=== PATIENT | female | born 1955 | race Caucasian/White ===

== ENCOUNTER 2025-07-11 10:54 | Outpatient (CLI) | payer MEDICARE, SELFPAY ==
[2025-07-11 12:14] LABS: Hematocrit 32.8 % (37.0-47.0); Hemoglobin 10.2 g/dL (12.0-15.0); Immature Granulocyte Percent A 0.5 % (0-0.5); Lymphocytes Absolute Auto 1.76 K/mm3 (0.9-3.2); Mean Corpuscular HGB Conc 31.1 g/dl (32-36); Mean Corpuscular Hemoglobin 28.4 pg (26-34); Mean Corpuscular Volume 91.4 fl (80-100); Nucleated Red Blood Cells Absolute Auto 0.000 K/mm3 (0.0-0.012); Nucleated Red Blood Cells Perc 0.0 % (0.0-0.2); Platelet Count Result 243 k/mm3 (150-375); Red Blood Count 3.59 M/mm3 (4.2-5.4); White Blood Count 7.4 K/mm3 (4.5-10.0)
[2025-07-11 12:40] LABS: Alanine Aminotransferase 23 U/L (6-35); Albumin Level 3.6 g/dL (3.5-5.1); Alkaline Phosphatase 36 U/L (38-126); Anion Gap 5 mmol/L (4-12); Aspartate Amino Transferase 55 U/L (14-36); Bilirubin,Total 0.4 mg/dL (0.2-1.3); Blood Urea Nitrogen 20 mg/dL (7-17); Calcium 8.6 mg/dL (8.4-10.2); Carbon Dioxide 25 mmol/L (22-30); Chloride 105 mmol/L (98-107); Cholesterol 101 mg/dL (0-200); Estimated Glomerular Filt Rate 38; Glucose 82 mg/dL (65-110); HDL Direct 33 mg/dL; Potassium 4.3 mmol/L (3.4-5.0); Sodium 135 mmol/L (137-145); Total Protein 6.2 g/dL (6.3-8.2); Triglycerides 132 mg/dL (<150)
--- OUTSIDE RECORDS SUMMARY | 2025-07-11 12:43 | XMS_ITS | Data Portability ---
Author Organization [place] [facility], Main Office Address [address] [place] [address] Assessment No assessment recorded. Plan of Treatment Reminders Order Date Submit Date Provider Last Modified By Organization Details Last Modified Time Details Appointments Follow Up 15 2024 01:00P JUNE Mora Not available Not available Not available Lab CBC w/ auto diff 2024 025 [email or web address] [facility], [address], [place], [address], 04/29/2025 08:15:33 TSH + free T4, serum 2024 025 [email or web address], [address], [place], [address], 04/29/2025 08:15:33 lipid panel, serum 2024 025 [email or web address], [address], [place], [address], 04/29/2025 08:15:33 CMP, serum or plasma 2024 025 [email or web address], [address], [place], [address], 04/29/2025 08:15:33 lipid panel, serum [address] [facility] (Lab), [address] [facility], [place], [address], 10/22/2024 13:45:30 CBC w/ auto diff [address] [facility] (Lab), [address] [place], [address], 10/22/2024 13:45:30 CMP, serum or plasma [address] [facility] (Lab), [address] [place], [address], 10/22/2024 13:41:37 CK (creatine kinase), total, serum [address] (Lab), [address] [place], [address], 10/27/2024 11:45:14 vitamin B12 + folate, serum or blood [address] (Lab), [address] [place], [address], 10/27/2024 11:45:13 unlisted lab - shield blood-bas ed colorecta l cancer screening 2023 024 [place] [facility], [address] , [place], [address], 06/22/2024 12:33:50 Referral None recorded. Procedures None recorded. Surgeries None recorded. Imaging LDCT, chest, for lung cancer screening - Please call patient to schedule. 2024 025 [email or web address] [facility], [address] [place] [address] , [place] [address], [place], [address], 05/26/2025 17:10:23 MAMMO, screening , digital, bilateral 2023 [email or web address] [place] [address], [address] [place], [address], 07/27/2024 09:44:29 Medication Orders tramadol 50 mg tablet 2024 025 [facility]28, [address] [place], [place], [id number], 04/22/2025 17:37:15 tramadol 50 mg tablet [address] [facility] #25527, [address] [place], [place], [id number], 01/18/2025 14:20:28 Bystolic 5 mg tablet [address] [facility]95312, [address] [place], [place], [id number], 01/18/2025 14:19:11 metoprolo l succinate ER 25 mg tablet,ex tended release 24 hr 2024 025 [email or web address] 00 [facility] [place] [place] #02082, [address] [place], [place], [id number], 01/18/2025 14:17:49 rosuvasta tin 10 mg tablet [address] [facility] #23945, [address] [place], [place], [id number], 10/20/2024 14:36:56 Depo-Medr ol 80 mg/mL suspensio n for injection 2023 024 [email or web address] Not available 04/22/2025 12:12:17 ketorolac 60 mg/2 mL intramusc ular solution 2023 024 [email or web address] Not available 04/22/2025 12:12:24 tramadol 50 mg tablet [address] [facility] [place] [place] #[address]66, [address] [place], [place], [id number], 06/22/2024 12:12:19 Patient TargetsNo targets recorded. Patient Instructions Encounter Date Encounter Id Patient Instructions Last Modified By Organization Details Last Modified Time 05/04/2024 [id number] Learning About Benefits of Quitting Smoking [email or web address] Not available 05/13/2024 16:08:54 advised to quit smoking [email or web address] Not available 05/13/2024 16:08:53 stroke education [email or web address] Not availa ble 05/13/2024 16:08:54 Learning About B E FAST: Stroke Warning Signs [email or web address] Not available 05/13/2024 16:08:54 hypertension education [email or web address] Not available 05/13/2024 16:08:54 cholesterol education [email or web address] Not available 05/13/2024 16:08:54 statins information [email or web address] Not olvin ilable 05/13/2024 16:08:53 06/22/2024 [id number] dementia rating scale-2* [email or web address] Not available 06/22/2024 11:59:23 depression screening* [email or web address] Not available 06/22/2024 11:59:22 alcohol misuse* [email or web address] Not availab le 06/22/2024 11:59:22 multi-dimensiona l health assessment questionnaire* Not available 06/22/2024 11:59:23 Personalized Hea lt Plan and Screening Recommendations Advance Directives - Do you have one? No I have no recommendations Advance Directives - Do we have your advance directive on file in your health record? I have no recommendations Primary Prevention/Interven tion (prevents or decreases the chance of common diseases from occurring) Smoking Risk: Smoker I have no recommendations Alcohol Misuse Screening: Negative I have no recommendations Weight: Overweight try to lose 10% of your body weight Physical activity: Need more exercise/physical activity minimum of 20-30 minutes activity that causes mild breathlessness/day Nutrition: Average Eat Heart Healthy Diet Fall Risk (screened today): Low I have no recommendations Vaccines Pneumococcal: Recommended today, but you have declined Influenza: Recommended today, but you have declined Chronic Disease Risks Stroke: Intermediate Risk Active diagnosis, Continue current treatment plan Heart Attack: Intermediate Risk Active diagnosis, Continue current treatment plan Clogging of the Arteries: Intermediate Risk Active diagnosis, Continue current treatment plan Diabetes: Low Risk I have no recommendations Secondary Prevention/Interven tion (detects treatable diseases before they may cause symptoms, disability, or ) Breast Cancer Screening with mammogram: Recommended today Cervical/Uterine/Ov hilton Cancer Screening: No screening necessary Osteoporosis Screening: Recommended today Date Screening Last Performed: Colon Cancer Screening: Shield Test Recommended Date Screening Last Performed: Eye Disease Screening: Recommended today Dementia Risk: Low I have no recommendations Depression Screening: Negative I have no recommendations abol Not available 06/21/2024 15:49:50 Reason for Referral None Reported. Results Created Date Observation Date Name Description Value Unit Range Abnormal Flag Note LastModifiedBy Organization Detail LastModifiedTime 06/22/20 24 06/22/2024 SHIEL D CRC crc The Shiel d Test is cover ed by Medic are. Non-M krish negrete nts may have an out of pocke t expen se of $1,49 5. Not Available [employer] [address], [place], [address], 06/22/2024 12:17:49 06/22/20 24 06/22/2024 SHIEL D CRC crc The Shiel d Test is cover ed by Medic are. Non-M krish negrete nts may have an out of pocke t expen se of $1,49 5. Not Available [employer] [address], [place], [address], 06/22/2024 12:33:50 08/23/20 24 08/23/2024 SHIEL D CRC crc Cancel ed - See attach ed report to view cancel ation reason Not Available [employer] [address], [place], [address], 08/23/2024 12:00:45 07/30/20 24 07/30/2024 MAMMgenet Lindsay digit al, bilat eral No observ ation record ed. [email or web address] [facility] [address] [place], [address], 2024 10:59:44 07/30/20 24 07/30/2024 MAMMO , scree el, digit al, bilat eral No observ ation record ed. [email or web address] [facility] [address] [place], [address], 2024 10:59:44 Result Notes None recorded. Problems Name Problem SNOMED Code Status Onset Date Resolution Date Notes Provider Name and Address Organization Details Recorded Time Vertigo 516837882 Active 2017 Not Available [facility] 4 05:26:04 History of cerebrova scular accident without residual deficits 123982622 Active 2017 Not Available [facility] 4 05:26:04 Smoker 62304806 Active 2017 Not Available [facility] 4 05:26:04 Congestiv e heart failure 14226327 Completed 201711/18/2017 Not Available [facility] 3 19:26:55 Cardiac pacemaker in situ 801582150 Active 2017 Jenny Choi CCM null, [place] [facility] 4 15:51:53 Colonosco py declined 95522279213 9100 Active 2021 Not Available [facility] 4 05:26:04 Essential hypertens ion 84483791 Active 2022 Jenny Choi CCM null, [place] [facility] 4 15:51:54 Hyperlipi demia 18793606 Active 2022 Jenny Choi CCM null, [place] [facility] 4 20:57:21 Periodic limb movement disorder 904112632 Active 2023 Not Available [facility] 4 05:26:04 Obstructi ve sleep apnea syndrome 19542844 Active 2023 Jenny Choi CCM null, [place] [facility] 4 20:57:21 Iron deficienc y 46651624 Active 2023 Jenny Choi CCM null, [place] [facility] 4 15:52:45 Nodule of lung 799395475 Active 2023 Jenny Choi CCM null, [facility] 4 15:52:32 Anxiety 40420370 Active 2023 Jenny Choi CCM null, [facility] 4 21:03:10 Screening mammograp hy Active 2023 KATIE Rodas [address], [address], [place], [address] , [facility] 4 11:58:14 Screening for malignant neoplasm of colon Active 2023 KATIE Rodas [address], [address], [place], [address] , [facility] [employer] [facility] 4 12:02:33 Thoracic back pain 666364500 Active 2023 KATIE Rodas [address], [address], [place], [address] , [facility] [employer] [facility] 4 12:06:06 Serum vitamin B12 below reference range 712379164 Active 2024 KATIE Rodas [address], [address], [place], [address] , [facility] [employer] [facility] 5 14:39:19 Anemia 108240171 Active 2024 KATIE Rodas [address], [address], [place], [address] , [facility] [employer] [facility] 5 14:19:21 Tobacco dependenc e caused by cigarette s 99085289520 373456 Active 2024 JUNE Gatica [address], [address], [place], [address] , [facility] 5 12:24:54 Notes:Medical History: CVA V ertigo Nicotine use RUL pulmonary nodules Early REM onset Mod OSAHS, AHI = 20, 09/24/23, on autoCPAP c/o IVRC Hypertension Mixed hyperlipidemia Iron deficiency B12 deficiency Left adrenal adenoma PLMD Thoracic DDD Procedure History: Right upper arm trauma surgery 1960 Left leg surgery 1965 Pacemaker placement 2018 Occupational History: Retired warehouse shipping clerk Some problems listed in Document: #[id number] could not be added to this patient's chart. Please review this document and add these problems to the patient's chart manually as needed. Problem Notes None recorded. Procedures Surgical History Date Name Laterality Status Provider Name and Address Organization Details Recorded Time 4 Medicare Wellness CPT Code, subsequent completed Chapis Rojas RN [facility] [employer] [facility] 06/21/2024 15:35:36 4 Chronic care management services completed Sarah Fajardo [facility] [employer] [facility] 05/04/2024 18:33:28 4 Chronic care management services completed Jenny Choi [facility] [employer] [facility] 04/01/2024 20:09:58 4 Chronic care management services completed Jenny Choi [facility] [employer] [facility] 03/03/2024 21:02:38 1 tooth extraction, complete mouth completed Elaina Moody RN [facility] [employer] [facility] 04/22/2025 11:49:42 Imaging Results None recorded. Procedure Notes None recorded. Medical Equipment None Reported. Allergies Allergen ID Allergen Name Allergen Category Reaction Reaction Severity Criticality Documentation Date Start Date Code Code System Note Provider Name and Address Organization Details Recorded Time 02266 wasp venoms environme nt Not available Not available Not available 10/23/2023 23571 RxNorm Not Available [facility] 4 10:31:36 No known drug allergies Medications Name Sig Start Date Stop Date Status Note LastModified by Organization Details LastModified Time cyclobenzap rine 10 mg tablet TAKE 1 TABLET BY MOUTH EVERY 8 HOURS NEEDED 11/25 completed Not Available Not Available Not Available atorvastati n 20 mg tablet Take 1 tablet every day by oral route. active Not Available Not Available No t Available Vitamin C 500 mg tablet TAKE 1 TABLET BY MOUTH EVERY DAY active Not Available Not Available No t Available ibuprofen 800 mg tablet TAKE 1 TABLET BY MOUTH EVERY 6-8 HOURS NEEDED FOR PAIN 04/22 completed Not Available Not Available Not Available cephalexin 250 mg capsule TK 1 C PO Q 6 H 02/23 completed Not Available Not Available Not Available famotidine 40 mg tablet TK ONE-HALF T PO Q 12 HOURS FOR 5 DAYS 02/08 completed Not Available Not Available Not Available tramadol 50 mg tablet Take 1 tablet twice a day by oral route as needed for 30 days. 2024 active Not Available Not Available Not Avai lable Depo-Medrol 80 mg/mL suspension for injection Take 1 mL by injection route. 04/22 completed Not Available Not Available Not Available methocarbam ol 750 mg tablet Take 1 tablet 3 times a day by oral route for 10 days. active Not Available Not Available No t Available meclizine 25 mg tablet TK 1 T PO TID PRN 08/17 completed Not Available Not Available Not Available hydroxyzine HCl 25 mg tablet TK 1 T PO Q 6 H PRN 02/08 completed Not Available Not Available Not Available Baby Aspirin 81 mg chewable tablet Chew 1 tablet every day by oral route as directed. 2017 active Not Available Not Available Not Avai lable furosemide 20 mg tablet TK 1 T PO QD 11/18 completed Not Available Not Available Not Available metoprolol succinate ER 25 mg tablet,exte nded release 24 hr TAKE 1 TABLET BY MOUTH EVERY DAY 01/18 completed low bp . Not Available Not Available Not Available lisinopril 10 mg-hydrochl orothiazide 12.5 mg tablet TAKE 1 TABLET BY MOUTH DAILY active Not Available Not Available No t Available methylpredn isolone 4 mg tablets in a dose pack TK UTD 02/08 completed Not Available Not Available Not Available ketorolac 60 mg/2 mL intramuscul ar solution Inject 1 mL every day by intramusc ular route for 1 day. 04/22 completed Not Available Not Available Not Available Ventolin HFA 90 mcg/actuati on aerosol inhaler INL 2 PFS PO Q 4 TO 6 H PRF SOB 11/18 completed Not Available Not Available Not Available cyclobenzap rine 5 mg tablet TAKE 1 TABLET BY MOUTH THREE TIMES DAILY 04/22 completed Not Available Not Available Not Available rosuvastati n 10 mg tablet TAKE 1 TABLET BY MOUTH EVERY DAY active Not Available Not Available No t Available fenofibrate 160 mg tablet TAKE 1 TABLET BY MOUTH EVERY DAY IN THE MORNING active Not Available Not Available No t Available Vitamin B-12 2018 active hold Not Available Not Available Not Avai lable Fish Oil active Not Available Not Avai lable Not Available Centrum Silver 10/20 completed Not Available Not Available Not Available Symbicort 80 mcg-4.5 mcg/actuati on HFA aerosol inhaler Inhale 2 puffs twice a day by inhalatio n route for 1 day. active Not Available Not Available No t Available FeroSul 325 mg (65 mg iron) tablet TAKE 1 TABLET BY MOUTH EVERY DAY active Not Available Not Available No t Available nebivolol 5 mg tablet TAKE 1 TABLET BY MOUTH EVERY DAY IN THE MORNING active Not Available Not Available No t Available Dulera 100 mcg-5 mcg/actuati on HFA aerosol inhaler INHALE 2 PUFFS PO BID PER RT 02/23 completed Not Available Not Available Not Available Beckie Yanez [employer] active Not Available Not Available Not Available Vitals Date Recorded Body height Body mass index (BMI) Body weight Body temperature Oxygen saturation Oxygen saturation in Arterial blood by Pulse oximetry Heart rate Systolic And Diastolic Provider Name and Address Organization Details Last Updated DateTime 5 162.56 cm 26.7 kg/m2 45673.6 9 g 97.7 [degF] 98 % 98 % 63 /min 108/60 mm[Hg] Jim Resendez RN [facility] 5 14:29:50 Date Recorded Body height Body mass index (BMI) Body weight Body temperature Heart rate Oxygen saturation Oxygen saturation in Arterial blood by Pulse oximetry Systolic And Diastolic Provider Name and Address Organization Details Last Updated DateTime 5 162.56 cm 26.8 kg/m2 53528.4 1 g 97.4 [degF] 67 /min 97 % 97 % 108/60 mm[Hg] Melanie Coe Lidya [facility] 5 14:01:18 Date Recorded Body height Body mass index (BMI) Body weight Body temperature Oxygen saturation Oxygen saturation in Arterial blood by Pulse oximetry Heart rate Systolic And Diastolic Provider Name and Address Organization Details Last Updated DateTime 5 162.56 cm 26.9 kg/m2 56969.8 6 g 97.5 [degF] 94 % 94 % 58 /min 100/60 mm[Hg] MIRANDA Reina - [facility] [place] [employer] [facility] 5 11:43:05 Date Recorded Body height Provider Name an d Address Organization Details Last Updated DateTime 05/04/2024 162.56 cm Sarah Fajardo [facility] [employer] [facility] 05/04/2024 18:31:17 Date Recorded Body height Body mass index (BMI) Body weight Body temperature Heart rate Oxygen saturation Oxygen saturation in Arterial blood by Pulse oximetry Systolic And Diastolic Provider Name and Address Organization Details Last Updated DateTime 4 162.56 cm 26.6 kg/m2 01677.8 2 g 98.2 [degF] 70 /min 97 % 97 % 120/50 mm[Hg] Kayla Triana RN [facility] [employer] [facility] 4 11:52:56 Social History Question Answer Notes LastModified by Organizat ion Details LastModified Time Tobacco Smoking Status Current Every Day Smoker Not Available [facility] 12/04/2022 19:26:38 Are You Blind Or Do You Have Difficulty Seeing? No MIGRATION.11915 64620 Information not available 12/04/2022 What Is Your Level Of Caffeine Consumption? Occasional 1/2 Cup Of Coffee/da y One Mini Bottle Pepsi/day [email or web address] Information not available 04/22/2025 In The 14 Days Before Symptom Onset, Have You Had Close Contact With A Laboratory-confir med COVID-19 While That Case Was Ill? No MIGRATION.37205 70081 Information not available 12/04/2022 In The 14 Days Before Symptom Onset, Have You Had Close Contact With A Person Who Is Under Investigation For COVID-19 While That Person Was Ill? No MIGRATION.56511 58203 Information not available 12/04/2022 Are You Deaf Or Do You Have Serious Difficulty Hearing? No MIGRATION.12154 86139 Information not available 12/04/2022 What Type Of Diet Are You Following? REGULAR MIGRATION.12386 53948 Information not available 12/04/2022 What Is The Highest Grade Or Level Of School You Have Completed Or The Highest Degree You Have Received? [id number] MIGRATION. 98207 Information not available 12/04/2022 Do You Have An Electrostatic Air Filter? No Information not available 10/23/2023 Have There Been Any Changes To Your Family Or Social Situation? No MIGRATION.40761 13828 Information not available 12/04/2022 Do You Have A Humidifier? No Information not available 10/23/2023 Do You Use Insect Repellent Routinely? No MIGRATION.63885 17051 Information not available 12/04/2022 Where Do You Live? Apartment MIGRATION.50862 67816 Information not available 12/04/2022 Do You Have Moisture Problems In Your Home? No Information not available 10/23/2023 What Was The Date Of Your Most Recent Tobacco Screening? 10/23/2023 Information not available 10/23/2023 What Is Your Current Pack Years? 20-29packyears [email or web address] Information not available 04/25/2025 Have You Ever Been Counseled For Unhealthy Alcohol Use? No MIGRATION.28180 81636 Information not available 12/04/2022 Do You Have Any Pets? No MIGRATION.50405 59861 Information not available 12/04/2022 What Is Your Relationship Status? Single MIGRATION.34791 17514 Information not available 12/04/2022 Do You Use Your Seat Belt Or Car Seat Routinely? Yes MIGRATION.35663 80844 Information not available 12/04/2022 Do You Have Smoke And Carbon Monoxide Detectors In Your Home? Yes MIGRATION.76063 41605 Information not available 12/04/2022 At What Age Did You Start Smoking Tobacco? 18 MIGRATION.16567 56279 Information not available 12/04/2022 Are You Passively Exposed To Smoke? Yes MIGRATION.15400 34693 Information not available 12/04/2022 Are There Any Smokers In Your House? Yes MIGRATION.29047 90474 Information not available 12/04/2022 How Much Tobacco Do You Smoke? 0.5 PPD Information not available 04/22/2025 Do You Participate In Social Media? No MIGRATION.94226 53673 Information not available 12/04/2022 Do You Use Sunscreen Routinely? No MIGRATION.20955 53422 Information not available 12/04/2022 Has Tobacco Cessation Counseling Been Provided? No MIGRATION.66814 26082 Information not available 12/04/2022 How Many Years Have You Smoked Tobacco? 51 [email or web address] Information not available 04/22/2025 Have You Recently Traveled Abroad? No MIGRATION.06844 87914 Information not available 12/04/2022 Do You Have Difficulty Walking Or Climbing Stairs? No MIGRATION.38217 34523 Information not available 12/04/2022 Are You Currently In School? No MIGRATION.40181 79026 Information not available 12/04/2022 Do You Have Any Dietary Restrictions? No MIGRATION.11424 25307 Information not available 12/04/2022 Sex: Female Functional Status Question Answer Note LastModified by Organizat ion Details LastModified Time Do you or have you ever used any other forms of tobacco or nicotine? No MIGRATION.7468718 026 Information not available 12/04/2022 What is your level of alcohol consumption? None [email or web address] Information not available 04/22/2025 Do you have transportation difficulties? No MIGRATION.9805587 026 Information not available 12/04/2022 Are you able to walk independently without assistance or assistive devices? [facility] MIGRATION.2622950 026 Information not available 12/04/2022 Do you have difficulty doing errands alone? No MIGRATION.2063307 026 Information not available 12/04/2022 Are you able to care for yourself independently? Yes MIGRATION.7161244 026 Information not available 12/04/2022 Do you have difficulty dressing, bathing, grooming, or toileting? No MIGRATION.7392550 026 Information not available 12/04/2022 What is your exercise level? Moderate MIGRATION.7597535 026 Information not available 12/04/2022 Mental Status Question Answer Note LastModified by Organizat ion Details LastModified Time Do you feel stressed (tense, restless, nervous, or anxious, or unable to sleep at night)? [id number] MIGRATION.16471081 26 Information not available 12/04/2022 Do you have difficulty concentrating, remembering or making decisions? No MIGRATION.47189961 26 Information not available 12/04/2022 Family History Relationship Description Onset Age of this Age Resolved Age Notes LastModified by Organization Details LastModified Time Father Malignant neoplasm of lung [email or web address] Not available 2023 10:10:43 Medical History Condition Response DIZZINESS Y Gynecological History Statement/Question Response Date of Last Mammogram 05/20/2022 Obstetrics History GPAL:G 0 P 0 0 0 0 Past Encounters Encounter ID Performer Location Encounter Start Date Encounter Closed Date Diagnosis/Indication Diagnosis SNOMED-CT Code Diagnosis ICD10 Code Diagnosis IMO Codes Diagnosis Note [id number] Romana Graham MD [facility] , [place] [address] 05/02/2021 00:00:00 05/02/2021 15:52:13 [id number] [facility] Jesus lang [facility] , [place] [address] 12/03/2021 00:00:00 12/03/2021 15:49:34 [id number] [facility] Jesus [facility] [place] [address] 05/22/2022 00:00:00 05/22/2022 14:15:42 [id number] Romana Graham MD [facility] [address] [place] [id number] 08/12/2022 00:00:00 08/12/2022 14:41:08 [id number] Romana Graham MD [facility] [place] [address] 11/26/2022 00:00:00 11/26/2022 20:29:06 [id number] Romana Graham MD [facility] [place] [address] 06/18/2023 11:18:28 06/18/2023 11:38:21 Essential hypertension 48718997 I10 Continue same meds. Screening for malignant neoplasm of colon 018638526 Z12.11 Pt is refusing colon cancer screening. [id number] Chun Squires MD [facility] Pulmonolo gy [address], [facility] [address] [place] [address] 10/23/2023 09:12:29 10/24/2023 08:08:43 Periodic limb movement disorder 897847441 G47.61 D50.8 E83.42 Obstructiv e sleep apnea syndrome 38943302 G47.33 Smoker 08117033 F17.218 F17.219 Z87.354 [id number] Chun Squires MD [facility] Pulmonolo gy [place] [address] [facility], [facility] [address] [place] [address] 11/03/2023 09:44:08 11/03/2023 12:34:31 Obstructive sleep apnea syndrome 83535474 G47.33 Smoker 10036880 F17.218 F17.219 Z87.891 Iron deficiency 54443430 E61.1 [id number] Zeke Bowden MD [facility] [place] [address] [place] [address] [place] [address] 03/03/2024 20:54:30 04/02/2024 15:01:58 Essential hypertension 21927149 I10 Obstructiv e sleep apnea syndrome 60515309 G47.33 Anxiety 21563146 F41.9 Cardiac pa cemaker in situ 021444981 Z95.0 Hyperlipidemia 77548527 E78.5 Iron deficiency 83937064 E61.1 Periodic l imb movement disorder 126010022 G47.61 D50.8 E83.42 [id number] Zeke Bowden MD [facility] [place] [address] [place] [address] [place] [address] 03/22/2024 11:37:39 03/22/2024 12:22:08 Essential hypertension 98452205 I10 Hyperlipidemia 33333733 E78.5 Iron deficiency 06853874 E61.1 Obstructiv e sleep apnea syndrome 26983304 G47.33 Cardiac pa cemaker in situ 337837783 Z95.0 Periodic l imb movement disorder 934521638 G47.61 D50.8 E83.42 Anxiety 49404533 F41.9 [id number] Zeke Bowden MD [facility] [place] [address] [place] [address] [place] [address] 04/01/2024 20:05:33 04/05/2024 13:39:58 Anxiety 26182060 F41.9 [id number] Zeke Bowden MD [facility] [place] [address] [facility] y [place] [address] 05/04/2024 18:29:34 05/14/2024 11:04:08 Smoker 01785008 F17.218 F17.219 Z87.891 Essential hypertension 96416022 I10 Hyperlipidemia 70330300 E78.5 History of cerebrovascular accident without residual deficits 932196954 Z86.73 [id number] Zeke Bowden MD [facility] [place] [address] [facility] [address] [place] [address] 06/22/2024 11:36:08 06/22/2024 12:16:32 Adult health examination 189804443 Z00.00 Screening for disorder 971757628 Z13.9 Screening mammography 24 684052 Z12.31 Screening for malignant neoplasm of colon 702726679 Z12.11 Thoracic back pain 41671 8004 M54.6 Essential hypertension 70724409 I10 Hyperlipidemia 27980615 E78.5 Cardiac pa cemaker in situ 074698452 Z95.0 Iron deficiency 25299025 E61.1 Obstructiv e sleep apnea syndrome 00980190 G47.33 Anxiety 51150914 F41.9 History of cerebrovascular accident without residual deficits 818994720 Z86.73 Periodic l imb movement disorder 161329796 G47.61 D50.8 E83.42 [id number] Zeke Bowden MD [address] [address] 10/20/2024 14:20:13 10/20/2024 14:43:31 Hyperlipidemia 97548246 E78.5 Essential hypertension 95279701 I10 Iron deficiency 42723037 E61.1 Cardiac pa cemaker in situ 777223485 Z95.0 Serum bertrand min B12 below reference range 213861565 R79.89 [id number] Zeke Bowden MD [address] [address] 01/18/2025 13:53:01 01/18/2025 14:26:33 Cardiac pacemaker in situ 964295397 Z95.0 Hyperlipidemia 51590464 E78.5 Iron deficiency 35553636 E61.1 Obstructiv e sleep apnea syndrome 66909004 G47.33 Essential hypertension 83325781 I10 Thoracic back pain 55852 8004 M54.6 [id number] Zeke Bowden MD [facility] [address] [address] 04/22/2025 11:34:03 04/22/2025 12:30:16 Essential hypertension 93453903 I10 Well controlled , managed by cardio Hyperlipidemia 59669959 E78.5 Well controlled , managed by cardio Thoracic back pain 65845 8004 M54.6 Chronic. Pt refuses imaging Tobacco de pendence caused by cigarettes 7581312066 3763928 F17.[address] abnormal Goals Section Goal Description Progress Status Start Date LastModified by Organization Details LastModified Time Smoking Cessatio n Quits smoking NoChange active 2023 Jenny Choi CCM Information not available 03/03/2024 18:41:24 Adequate Sleep Achieves adequate, well-rested sleep with minimal disruption NoChange active 2023 Jenny Choi CCM Information not available 03/03/2024 18:41:24 Recreati onal Activiti es Participates in recreational activities Progressing active 2023 Jenny Choi CCM Information not available 04/01/2024 23:16:48 Chronic Conditio n Action Plan Follows action plan for any worsening of chronic condition(s) as per care team recommendation (s) Progressing active 2023 Jenny Choi CCM Information not available 04/01/2024 23:16:47 Activiti es of Daily Living Performs activities of daily living independently or with minimal assistance Progressing active 2023 Jenny Choi CCM Information not available 04/01/2024 23:16:54 Health Concerns Section Related Observation LastModified by Organization Detai ls LastModified Time Chronic sick Not Available Not Available Not Available Concern Status LastModified by Organization Details LastModified Time health literacy assessment Active Jenny Choi CCM Not Available 03/03/2024 18:4 0:29 Smoker Active Jenny Choi, SHAHLA Not Available 03/03 18:39:39 Advance Directives Directive None Recorded Payers Insurance Date Sequence Insurance Name Policy Number Policy Souza Covered Member ID Souza Member ID Guarantor Name 04/26/2025 1 [facility] (MEDICARE REPLACEMENT/A DVANTAGE - PPO) [id number] Lidia Correa [id number] Lidia Correa Notes Date Note Type Note Provider Name and Address Organization Details Recorded Time 05/04/2024 text/html ROS as noted in the HPI 68 y/o , no changes KATIE Rodas [address], [employer], [place], [address], [employer] 05/13/2024 16:09:51 06/22/2024 text/html ROS as noted in the HPI no changes KATIE Rdoas [address], [employer], [place], [address], [employer] 07/07/2024 14:01:40 10/20/2024 text/html ROS as noted in the HPI no changes KATIE Rodas [address], [employer], [place], [address], [employer] 10/26/2024 17:00:07 01/18/2025 text/html ROS as noted in the HPI no changes KATIE Rodas [address], [employer], [place], [address], [employer] 02/01/2025 08:58:49 04/22/2025 text/html Lidia Correa is a 69 year old female patient here today to establish care. She was previously seeing Beau Marcano History of pacemaker, managed by cardiology.Hypertens ion, hyperlipidemia also managed by cardiology. She recently had a sleep study which indicated sleep apnea, she has decided not to use a CPAP at this time. She has chronic back pain. She utilizes tramadol 50 mg. Pt declines imaging, ortho spine, and pain management She is a currently daily smoker. She has a 51 year history, currently smokes 1/2 ppd. She had a LDCT in 2023, recommended 1-3 month FU. Will do now. Flu shot: declinesCOVID vaccines: declinesTdap: declinesPneumonia: declinesShingrix: declinesMammogram: 07/30/24, scheduled for 05/2025WWE: recommendedColonosco py: recommended, pt declines. Has never had. Kemi Bradshaw, [employer] [address] [facility], [facility] [address], [place], [address], [place] [employer] [facility] 04/22/2025 12:29:06 OBGyn Episode No OBEpisode recorded.
--- OUTSIDE RECORDS SUMMARY | 2025-07-11 12:43 | XMS_ITS | Clinical Summary ---
Author Organization [facility] Address [address] [place] [address] Care Team Providers Care Cardroom Worker Name Role Phone Romana Graham MD Primary Care Provider [phone] Allergies No known active allergies Medications VENTOLIN HFA 90 mcg/actuation inhaler 11/05/2017 Active cephalexin (KEFLEX) 250 mg capsule 11/10/2017 Active DULERA 100-5 mcg/actuation inhaler 11/10/2017 Active rosuvastatin (CRESTOR) 10 mg tablet 10/09/2017 Active aspirin 81 mg tablet Take 81 mg by mouth daily. Active Active Problems No known active problems Surgical History Surgery Date Site/Laterality Comments CARDIAC PACEMAKER PLACEMENT 11/06/2017 Medical History Medical History Date Comments High cholesterol Heart disease Social History Tobacco Use Types Packs/Day Years Used Date Smoking Tobacco: Every Day Smokeless Tobacco: Never Alcohol Use Standard Drinks/Week Comments Yes 0 (1 standard drink = 0.6 oz pur e alcohol) Comments Unknown Sex and Gender Information Value Date Recorded Sex Assigned at Not on file Legal Sex Female 10:00 AM DIRECTOR OF PERSONNEL Gender Identity Not on file Sexual Orientation Not on file Obstetrics History Last Filed Vital Signs Vital Sign Reading Time Taken Comments Blood Pressure 134/71 11/13/2017 2:13 PM DIRECTOR OF PERSONNEL Pulse 85 11/13/2017 2:13 PM DIRECTOR OF PERSONNEL Temperature - - Respiratory Rate - - Oxygen Saturation - - Inhaled Oxygen Concentration - - Weight 76.8 kg (169 lb 6.4 oz) 11/13/2017 2:13 P M DIRECTOR OF PERSONNEL Height 161.3 cm (5' 3.5) 11/13/2017 2:13 PM DIRECTOR OF PERSONNEL Body Mass Index 29.54 11/13/2017 2:13 PM DIRECTOR OF PERSONNEL Plan of Treatment Not on file Insurance [facility] MEDICAID Care Teams Cardroom Worker Relationship Specialty Start Date End Date Romana Graham MD [address] [place] [address] [place] [address] PCP - General Family Medicine 10/30/17
[2025-07-11 12:50] LABS: Free T4 Free Thyroxine 1.42 ng/dL (0.78-2.19)
[2025-07-11 13:16] LABS: Thyroid Stimulating Hormone 0.253 uIU/mL (0.465-4.680)
== END 2025-07-11 10:55 | disposition home or self-care (01) ==
LOC: ANHLAB 11:00
DX: E78.5 Hyperlipidemia, unspecified (principal); I10 Essential (primary) hypertension
CPT/HCPCS: 36415; 80053; 80061; 84439; 84443; 85025